=== PATIENT | female | born 1980 | race Caucasian/White ===

== ENCOUNTER → 2025-03-22 10:43 | Outpatient (CLI) | payer OTHER, SELFPAY ==
--- NOTE | 2025-03-22 10:47 | DI.MRI.S_ITS ---
PROCEDURE: MR CERVICAL SPINE WO CON INDICATIONS: paraglegia TECHNIQUE: Noncontrast sagittal T1 spin echo and T2 fast spin echo, sagittal STIR, foraminal oblique sagittal T2 fast spin echo, and axial gradient echo or T2 fast spin echo through the cervical spine. COMPARISON: None. FINDINGS: Image quality: Excellent. Alignment and Curvature: There is reversal cervical curvature with apex at C5. Portions of the lower pelvis are suboptimally evaluated secondary to metallic streak artifact from hip arthroplasty. Most suggestive anterior fusion is present at C5-6, C6-7. Bone Marrow: Marrow demonstrates normal overall signal. Spinal Cord: Visualized spinal cord has normal size. There is increased intramedullary signal at C5-6.. No cerebellar tonsillar herniation. Paraspinous Soft Tissues: No paravertebral masses. Prevertebral soft tissues are normal in thickness. C2-C3: Minimal disc bulge without spinal stenosis. Moderate bilateral foraminal narrowing with uncovertebral hypertrophy. C3-C4: Mild disc bulge with moderate spinal stenosis. Moderate bilateral foraminal narrowing with uncovertebral hypertrophy. C4-C5: Mild disc bulge with posterior central protrusion. Moderate to severe spinal stenosis. Moderate bilateral foraminal narrowing with uncovertebral hypertrophy. C5-C6: Postsurgical changes are present. Moderate spinal stenosis as well as bilateral foraminal narrowing. C6-C7: Minimal disc bulge with moderate spinal stenosis. Moderate bilateral foraminal narrowing. C7-T1: No disc bulge, spinal stenosis or foraminal narrowing. IMPRESSION: Multilevel disc bulges. Focal area of increased signal within the cord with spinal stenosis. This is felt to likely represent myelomalacia secondary to degenerative changes. Multilevel foraminal narrowing most severe at C4-5 secondary to uncovertebral arthropathy. Dictated by: Marybel Rodrigez M.D. on 03/22/2025 at 13:07 Approved by: Marybel Rodrigez M.D. on 03/22/2025 at 13:13
== END ==
DX: M50.31 Other cervical disc degeneration, high cervical region (principal); M47.812 Spondylosis without myelopathy or radiculopathy, cervical region; M48.02 Spinal stenosis, cervical region; G95.9 Disease of spinal cord, unspecified; G82.22 Paraplegia, incomplete
CPT/HCPCS: 72141